=== PATIENT | female | born 1990 | race Caucasian/White ===

== ENCOUNTER 2019-10-04 17:16 | Inpatient (IN) | payer MEDICAID ==
[~2019-10-04] VITALS: Ht 154.9 cm; Wt 61.9 kg
[2019-10-04 17:19] VITALS: Ht 154.9 cm; Wt 61.9 kg
--- NOTE | 2019-10-04 18:00 | NUR ---
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
--- NOTE | 2019-10-04 18:17 | NUR ---
LAB AT BEDSIDE
--- NOTE | 2019-10-04 18:27 | NUR ---
EKG IN PROGRESS
--- NOTE | 2019-10-04 18:40 | NUR ---
PORTABLE US AT BEDSIDE
--- NOTE | 2019-10-04 18:40 | NUR ---
MD WILLS MADE AWARE OF PT TEMP
[2019-10-04 18:41] LABS: UA SPECIFIC GRAVITY >=1.030 (1.005-1.035); microscopic required? YES; urine erythrocyte 3+ (NEGATIVE)
[2019-10-04 18:41] LABS: CALCIUM 8.1 mg/dL (8.5-10.1); CARBON DIOXIDE 25.9 mmol/L (21-32); CHLORIDE SERUM 97 mmol/L (98-107); CREATININE SERUM 0.5 mg/dL (0.6-1.0); GFR1 > 60 mL/min; GLUCOSE SERUM 87 mg/dL (74-106); POTASSIUM SERUM 3.5 mmol/L (3.5-5.1); SODIUM SERUM 132 mmol/L (136-145)
[2019-10-04 18:42] LABS: PLATELET COUNT 207 x10^3mcL (130-400); RED CELL DISTRIBUTION WIDTH 14.1 % (11.5-14.5)
--- NOTE | 2019-10-04 18:44 | NUR ---
PT MEDICATED PER MD ORDER SEE EMAR, PT MADE AWARE NOT TO USE A BLANKET AT THIS TIME.
[2019-10-04 18:45] LABS: BASOPHIL % 0 % (0-2)
[2019-10-04 18:46] LABS: ALKALINE PHOSPHATASE 450 U/L (46-116); ALT/SGPT 741 U/L (14-59); AST/SGOT 588 U/L (15-37); BILIRUBIN TOTAL 4.47 mg/dL (0.20-1.00); LIPASE 199 IU/L (73-393)
[2019-10-04 18:48] LABS: ALBUMIN 3.1 g/dL (3.4-5.0)
--- NOTE | 2019-10-04 19:11 | NUR ---
REPORT GIVEN TO WESTON GALLARDO TO RESUME CARE AT THIS TIME
--- NOTE | 2019-10-04 20:34 | NUR ---
INITIATED ZOSYN @100ML/HR. PLEASE SEE EMAR.
--- NOTE | 2019-10-04 20:44 | NUR ---
GAVE BRANDEE FROM [facility] CLINICAL SUMMARY FOR POSS ADMISSION.
--- NOTE | 2019-10-04 22:13 | NUR ---
REPORT GIVEN TO PAULINA ESCOBEDO TO ASSUME CARE OF THE PT.
[2019-10-04 22:35] VITALS: BP 96/52
--- NOTE | 2019-10-04 22:38 | NUR ---
RECEIVED PT FROM ED VIA LUIS. ORIENTED PT TO ROOM AND SURROUNDINGS. IV NOTED TO RIGHT WRIST PATENT AND INTACT. INSTRUCTED PT ON THE USE OF CALL LIGHT FOR ASSISTANCE. ENDORSED PT TO PRIMARY NURSE FANNY
--- NOTE | 2019-10-04 23:45 | NUR ---
RECEIVED FROM ED. KEPT COMFORTABLE IN BED. A/O X4, ABLE TO VERBALIZE NEEDS. ADMITTED WITH THE COMPLAINTS OF ABD. PAIN. NO COMPLAINTS NOTED AT THIS TIME. DENIES HEADACHE/DIZZINESS. ABD. SOFT, NON DISTENDED, BS ACTIVE, NO N/V NOTED. RESP. EVEN AND UNLABORED. LUNG SOUNDS CLEAR BILAT. ON ROOM AIR, NO ACUTE DISTRESS NOTED. STARTED ON IVF, NS AT 100ML/HR, INTACT AND INFUSING VIA RT WRIST. NPO EXCEPT MEDS. AFEBRILE AND VITAL SIGNS STABLE. CALL LIGHT WITHIN REACH. WILL CONTINUE TO MONITOR.
--- NOTE | 2019-10-05 01:20 | NUR ---
TO NUCLEAR MED .
--- NOTE | 2019-10-05 03:55 | NUR ---
FROM NUCLEAR MED, KEPT COMFORTABLE IN BED, COMPLAINING OF ABD. PAIN, 5/10, MEDICATED WITH TORADOL IV ORDERED. WILL CONTINUE TO MONITOR.
[2019-10-05 05:15] VITALS: BP 89/55
--- NOTE | 2019-10-05 05:19 | NUR ---
EYES CLOSED, APPEARS ASLEEP, EASILY AROUSABLE. RESP. EVEN AND UNLABORED. ON ROOM AIR, NO DISTRESS NOTED. WILL CONTINUE TO MONITOR.
--- NOTE | 2019-10-05 06:24 | NUR ---
NO COMPLAINTS NOTED AT THIS TIME. AFEBRILE AND VITAL SIGNS STABLE. RESP. EVEN AND UNLABORED. ON ROOM AIR, NO ACUTE DISTRESS NOTED. DUE MEDS GIVEN ORDERED, ROWDY. WELL. NPO EXCEPT MEDS MAINTAINED. IVF INTACT AND INFUSING WELL, SITE CLEAR. KEPT COMFORTABLE.VOIDING FREELY. NO BM NOTED. WILL CONTINUE TO MONITOR.
[2019-10-05 07:03] LABS: BASOPHIL % 0.1 % (0-2); PLATELET COUNT 172 x10^3mcL (130-400); RED CELL DISTRIBUTION WIDTH 13.9 % (11.5-14.5)
--- NOTE | 2019-10-05 07:05 | NUR ---
RECEIVED PT FROM NIGHT NURSE. PT IS LAYING DOWN IN BED WITH HOB UP RESTING. PT LOOKS TO BE IN NO ACUTE DISTRESS AT THIS TIME AND DENIES ANY PAIN AND STATES THAT SHE FEELS TIRED AT THIS TIME. RESPRIATIONS EVEN AND ULABORED ON ROOM AIR. IV SITE PATENT WITH NO SIGNS OF ERYTHEMA OR SWELLING WITH IV FLUIDS INFUSING. CALL LIGHT WITHIN REACH. WILL CONTINUE TO MONITOR.
[2019-10-05 07:33] VITALS: BP 87/57
[2019-10-05 07:36] LABS: CALCIUM 7.7 mg/dL (8.5-10.1); CARBON DIOXIDE 22.6 mmol/L (21-32); CHLORIDE SERUM 104 mmol/L (98-107); CREATININE SERUM 0.6 mg/dL (0.6-1.0); GFR1 > 60 mL/min; GLUCOSE SERUM 84 mg/dL (74-106); MAGNESIUM 2.1 mg/dL (1.8-2.4); PHOSPHOROUS 2.2 mg/dL (2.5-4.9); POTASSIUM SERUM 3.2 mmol/L (3.5-5.1); SODIUM SERUM 137 mmol/L (136-145)
[2019-10-05 08:29] LABS: BILIRUBIN DIRECT 3.6 mg/dL (0.0-0.2); BILIRUBIN TOTAL 5.24 mg/dL (0.20-1.00)
--- NOTE | 2019-10-05 11:17 | NUR ---
PT TAKEN DOWN FOR MRI, PT IS H/L AND LOOKS TO BE IN NO ACUTE DISTRESS AT THIS TIME. WILL CONTINUE TO MONITOR.
[2019-10-05 13:26] LABS: BILIRUBIN DIRECT 3.31 mg/dL (0.0-0.2); BILIRUBIN TOTAL 5.1 mg/dL (0.20-1.00); TOTAL PROTEIN, SERUM 6.3 g/dL (6.4-8.2)
[2019-10-05 13:27] LABS: ALBUMIN 2.7 g/dL (3.4-5.0)
--- NOTE | 2019-10-05 14:02 | NUR ---
PT IS LAYING DONW IN BED WITH HOB UP RESTING. PT LOOKS TO BE IN NO ACUTE DISTRESS AT THIS TIME AND STATES HER PAIN IS TOLERABLE. PT REQUESTING TO SHOWER, DR. HA DOES NOT RECOMMEND PT TO SHOWER AT THIS TIME BECAUSE OF LOW BLOOD PRESSURE. PROVIDED PT WITH WIPES AND A NEW GOWN. FAMILY MEMBER AT BEDSIDE. WILL CONTINUE TO MONITOR.
--- NOTE | 2019-10-05 16:20 | NUR ---
PT BLOOD PRESSURE LOW AND IS 89/54 WITH MAP OF 64. NOTIFIED DR. HA, AWAITING ORDERS.
[2019-10-05 16:37] VITALS: BP 89/54
--- NOTE | 2019-10-05 17:40 | NUR ---
POST BOLUS BLOOD PRESSURE IS 91/53.
[2019-10-05 17:50] VITALS: BP 91/53
--- NOTE | 2019-10-05 17:50 | NUR ---
PT TRANSFERED TO TELE. TELE MONITOR 10 APPLIED TO PT AND SHOWING INVERTED T WAVE. PT WALKING AROUND UNIT AT THIS TIME. WILL CONTINUE TO MONITOR.
--- NOTE | 2019-10-05 18:41 | NUR ---
PT IS SITTING AT THE EDGE OF THE BED. PT LOOKS TO BE IN NO ACUTE DISTRESS AT THIS TIME AND DENIES ANY PAIN. PT STATES THAT SHE IS BURPING AND PASSING GAS OFTEN. PT STATES THAT SINCE SHE HAS WALKED AROUND, SHE FEELS BETTER. RESPIRATIONS EVEN AND UNLABORED ON ROOM AIR. IV SITE PATENT WITH NO SIGNS OF ERYTHEMA OR SWELLING WITH IV FLUIDS INFUSING. CALL LIGHT WITHIN REACH. DEENA ENDORSE TO ONCOMING SHIFT.
--- NOTE | 2019-10-05 19:20 | NUR ---
RECEIVED PT FROM PREVIOUS SHIFT NURSE. PT AOX4, DENIES ALMODOVAR/DIZZINESS. TELE #10, READING SR WITH DEPRESSED T WAVE. DENIES CP/PRESSURE. DENIES SOB/DIFFICULTY BREATHING, ON RA. IV TO R. HAND, INTACT AND PATENT. BED IN LOWEST POSITION. CALL LIGHT WITHIN REACH. WILL CONTINUE TO MONITOR.
--- NOTE | 2019-10-05 20:03 | NUR ---
RECEIVED A CALL FROM [facility], PT RHYTHM CONVERTED TO A 'COMPLETE HEART BLOCK'. PT ASYMPTOMATIC. DENIES CP/PRESSURE. DR. SOTELO NOTIFIED. ORDERED STAT EKG.
[2019-10-05 20:53] VITALS: BP 90/53
--- NOTE | 2019-10-05 20:59 | NUR ---
PT HAD SECOND RUN OF COMPLETE HEART BLOCK. PT ASYMPTOMATIC. DENIES CP/PRESSURE. DR. SOTELO NOTIFIED.
--- NOTE | 2019-10-06 00:25 | NUR ---
PT HAD 2 MORE EPISODES OF COMPLETE HEART BLOCK. DENIES CP/PRESSURE. PT ASYMPTOMATIC. VITALS FOLLOW: 98/59 MAP 74, HR 78, 02 98% ON RA. DR. SCHRADER NOTIFIED.
--- NOTE | 2019-10-06 03:00 | NUR ---
PT RESTING IN BED. RR EVEN AND UNLABORED. IN NO ACUTE DISTRESS. CALL LIGHT WITHIN REACH. BED IN LOWEST POSITION. WILL CONTINUE TO MONITOR.
[2019-10-06 05:23] VITALS: BP 102/68
--- NOTE | 2019-10-06 05:24 | NUR ---
PT HAD ANOTHER EPISODE OF SECOND DEGREE MOBITZ. PT DENIES CP/PRESSURE. DIZZINESS. PT ASYSMPTOMATIC AT THIS TIME.
[2019-10-06 06:05] LABS: AMPHETAMINE QUAL UR POSITIVE (See below)
[2019-10-06 06:55] LABS: MAGNESIUM 1.8 mg/dL (1.8-2.4); PHOSPHOROUS 1.9 mg/dL (2.5-4.9)
[2019-10-06 06:56] LABS: BASOPHIL % 0.3 % (0-2); RED CELL DISTRIBUTION WIDTH 14.4 % (11.5-14.5)
[2019-10-06 07:26] VITALS: BP 104/70
[2019-10-06 07:35] LABS: ALBUMIN 2.3 g/dL (3.4-5.0); ALKALINE PHOSPHATASE 296 U/L (46-116); BILIRUBIN TOTAL 5.74 mg/dL (0.20-1.00); CALCIUM 7.2 mg/dL (8.5-10.1); CARBON DIOXIDE 21.9 mmol/L (21-32); CHLORIDE SERUM 108 mmol/L (98-107); CREATININE SERUM 0.6 mg/dL (0.6-1.0); GFR1 > 60 mL/min; GLUCOSE SERUM 90 mg/dL (74-106); POTASSIUM SERUM 3.3 mmol/L (3.5-5.1); SODIUM SERUM 139 mmol/L (136-145); TOTAL PROTEIN, SERUM 5.3 g/dL (6.4-8.2)
[2019-10-06 07:36] LABS: AST/SGOT 1279 U/L (15-37)
[2019-10-06 07:37] LABS: ALT/SGPT 1299 U/L (14-59)
[2019-10-06 08:05] LABS: PLATELET COUNT 90 x10^3mcL (130-400)
--- NOTE | 2019-10-06 08:33 | NUR ---
AT 0710 - RECEIVED PATIENT FROM NIGHT NURSE. SLEEPING. RESPIRATIONS REGULAR. MONITOR SHOWING SINUS RHYTHM; RATE 70. NO ECTOPIES NOTED. IV INFUSING D5NS AT 125 ML/HR. AT 0820 - PATIENT AWAKE, ALERT AND ORIENTED. REPORTS ABDOMINAL PAIN UNDER CONTROL AT THIS TIME. AWARE OF NEED TO BE NPO FOR POSSIBLE PROCEDURE. GIVEN K-PHOS PER EMAR FOR PHOS LEVEL OF 1.9.
--- NOTE | 2019-10-06 09:10 | NUR ---
RECEIVED ORDERS FOR CT GUIDED ASPIRATION OF PERICHOLECYSTIC FLUID. CONTACTED DR Derek AYERS INTERVENTIONALIST WHO REVIEW PRIOR IMAGES. SPOKE WITH PATIENT'S NURSE ERNESTO WHO SAYS THERE IS A CONSULT PENDING WITH DR Gaurav BRAVO FOR POSSIBLE ERCP. NOTIFIED DR AYERS R/T SAME. DR AYERS PAGING DR HA TO DISCUSS THE CASE WITH HER.
--- NOTE | 2019-10-06 10:00 | NUR ---
DR HA SPOKE WITH DR MARIE IN PERSON, INTERVENTIONAL RADIOLOGY ORDER ON HOLD AT THIS TIME, DIRECTOR EXTERNAL COMMUNICATIONS WILL DO ERCP INSTEAD.
--- NOTE | 2019-10-06 10:23 | NUR ---
AT 0855 - RECEIVED CALL FROM DR BRAVO. PATIENT IS FOR ERCP TODAY. RECEIVED INSTRUCTION TO PROVIDE PATIENT WITH ERCP INFORMATION AND DR WILL SEE PATIENT SHORTLY. AT 0935 - SEEN BY DR BRAVO. AT 0945 - SEEN BY DR CHERY DURING MORNING ROUNDS WITH THE MEDICAL TEAM DOCTORS. SPOKE WITH PATIENT ABOUT PLAN OF TREATMENT. RECEIVING CALLS FROM RADIOLOGY ABOUT PLAN FOR PATIENT TO HAVE ASPIRATION OF GALL BLADDER. SPOKE WITH DR CHERY AND DR SHAH. THEY WILL CO-ORDINATE WITH RADIOLOGIST AND LABORATORY VETERINARIAN TO SEE WHICH PROCEDURE WILL BE DONE. AT 1000 - PER DR HA, PATIENT WILL HAVE ERCP ONLY AT THIS TIME. PATIENT HAS SIGNED CONSENT FOR ERCP AND MODERATE SEDATION/MAC. CHLORHEXEDINE BODY WIPES SKIN PREP DONE. AT 1010 - REPORT GIVEN TO SURGERY NURSE. AT 1030 - PATIENT WAS IN THE PROCESS OF BEING TAKEN TO SURGERY FOR ERCP BUT PROCEDURE POSTPONED UNTIL 1200 NOON, SO PATIENT RETURNED TO BED. IV FLAGYL IN PROGRESS AT THIS TIME.
--- NOTE | 2019-10-06 12:40 | NUR ---
AT 1155 - PATIENT TAKEN TO OR FOR ERCP. SCHEDULED DOSE OF IV ZOSYN SENT WITH PATIENT. OR NURSE WILL ADMINISTER. PO KCL HELD AT THIS TIME. WILL ADMINISTER UPON PATIENT'S RETURN TO FLOOR.
[2019-10-06 14:22] VITALS: BP 99/60
--- NOTE | 2019-10-06 15:09 | NUR ---
AT 1430 - PATIENT BACK IN ROOM FOLLOWING ERCP , SPHINCTEROTOMY, BALLOON SWEEP AND STENT PLACEMENT UNDER GENERAL ANAESTHESIA. PATIENT IS AWAKE, ALERT AND ORIENTED X 4. IV INFUSION OF D5 NS RESUMED AT 125 ML/HR. GIVEN 20 MEQ KCL PO PER EMAR FOR K+ LEVEL OF 3.3. NO C/O PAIN. AT 1445 - EATING LUNCH. REGULAR DIET FOOD. AT 1500 - CARE ENDORSED TO PAULINA GA.
--- NOTE | 2019-10-06 15:51 | NUR ---
RECEIVED REPORT FROM THE RN AND ASSUMED CARE OF THE PATIENT.SHE HAS DIMINISHED BREATH SOUNDS AND WITH SOME MILD RALES HEARD. SHE HAS SKIN THAT IS JAUNDICED BUT ONLY MILDLY AND HAS A DISTENDED AND MODERATELY FIRM ABDOMEN. AT THIS TIME SHE DENIES PAIN CONSTANTINO HS BEEN ON REGULAR DIET ORDERED AND NO NAUSEA NOTED. PATIENT HAS A ERCP AND A STENT AND SPINCEROTOMY WITH SWEEP BY DR BRAVO AND HAS BEEN SEEN BY DR SANTILLAN WHO DOES NT WANT TO DO SURGERY AT THIS TIME. SHE HAS NOTED LABS OF THE AST AT 1279, AND ALT AT 1299, AND THE ALK PHOS AT 296. SHE HAS BEE WITH POTASSIUM OF 3.3 AND PO WAS GIVEN THIS AM AND PHOS AT 1.9 AND PHOS WAS ALSO REPLACED. SHE HAS BEEN ON FLAGYL AND ZOSYN AND NO ADVERSE REACTION NTOED. PATIENT IS AMBULATORY AND HAS BEEN NOTED TO HAVE HX OF HEROIN AND METHAMPHETAMINE USE AND HAS HEPATITIS C AND HAS USED IV DRUGS, IS A SMOKER AND SUSPECT SHE DRINKS WELL IT NOT NOW POSSIBLY IN THE PAST. SHE IS WITH SINUS RHYTHM ON THE MONITOR AND WAS REPORTED TO HAVE A 2ND DEGREE BLOCK ON THE CHO AND A BOUT OF FIRST DEGREE BLOOD LAST NIGHT SINCE RESOLVED, MOBITZ TYPE. SHE HAS ACTIVE BOWEL SOUNDS AND LYING IN BED AND TALKING ON THE CELL PHONE AT THIS TIME PULSES PALPABLE AND SKIN IS WARM AND DRY. LAST VITALS AREA T 97.9, 64, 16, 99/60, 100% ON ROOM AIR AT 14:30. DOES NOT APPEAR IN ANY ACUTE DISTRESS AT THIS TIME.
[2019-10-06 17:16] VITALS: BP 92/55
--- NOTE | 2019-10-06 17:18 | NUR ---
PATIENT SEEN BY DR JORGE AND PLAN OF CARE DISCUSSED. PER SURGERY HE BELIEVES SHE CAN GO HOME TOMORROW OR ON WEDNESDAY. SHE HAS NOT HAD ANY REGLA REMOVED AND WOUND SITE OPEN TO AIR. SHE HAS TO FOLLOWED UP WITH PRIMARY AND WITH THE SURGEON ON WEDNESDAY IN [place] OFFICE. SHE WAS SITTING UP IN CHAIR AND TOLERATED WELL. ADVISDED THAT THERE IS NO MORE ANTIBIOTIC INDICATED FOR HOME SOME MOTRIN OR PAIN MEDICATION ONLY. SHE IS TO AVOID BEEF FOR NOW AND TO WALK AND TAKE IT SLOWLY. SHE HAS BEEN TAKING BP MEDICATIONS AT HOME AND SHE TAKES ZOCAR AND ADVISED THE CHARGE NURSE SHE NEEDS TO CONTINUE SHE WAS CALLING THE ROTOPRINTER FOR UPDATES. BP IS ABOVE THE 160'S SYSTOLIC. AT THIS TIME. SHE DENIES ANY HEADACHE OR PRESSURE. HX OF CVA, HTN NOTED.
--- NOTE | 2019-10-06 17:26 | NUR ---
PAIN MEDICATION WAS EFFECTIVE AND NOW PATIENT WANTS ICE CREAM. WILL REQEST. PATIENT CONTINUED ON IV ANTIBIOTICS ORDERED.
--- NOTE | 2019-10-06 19:52 | NUR ---
PATIENT REQUESTING SHOWER AND NO ORDERS. ENDORSED TO RN COMING IN. PATIENT ON TELE AND VERY ACTIVE.
--- NOTE | 2019-10-06 20:00 | NUR ---
PT A/A/O X4. DENIES DIZZINESS AND HEADACHE. BREATH SOUNDS CLEAR. BREATHING EVEN AND UNLABORED ON ROOM AIR. DENIES CHEST PAIN AND PRESSURE. BOWEL SOUNDS ACTIVE. C/O MILD NAUSEA AND DENIES NEED FOR NAUSEA MEDICATION. DENIES ABD PAIN THUS FAR. IV INTACT ON THE RIGHT FOREARM INFUSING WITH D5 NS AT 125 ML/HR. MADE PT COMFORTABLE. PLACED CALL LIGHT WITH IN REACH. WILL CONTINUE TO MONITOR.
--- NOTE | 2019-10-07 | NUR ---
PT C/O ABDOMINAL PAIN AND FEELING FULL. GAVE PT TORADOL IVP. PT TOLERATED IT WELL. WILL CONTINUE TO MONITOR.
--- NOTE | 2019-10-07 02:55 | NUR ---
PT C/O NAUSEA AND STOMACH "FEELING SOUR". GAVE PT ZOFRAN IVP. PT TOLERATED IT WELL. WILL CONTINUE TO MONITOR.
[2019-10-07 04:16] VITALS: BP 97/70
--- NOTE | 2019-10-07 04:31 | NUR ---
PT C/O SEVERE ABDOMINAL PAIN. GAVE PT MORPHINE IVP. PT TOLERATED IT WELL. DENIES FEELING NAUSEATED THUS FAR. MADE PT COMFORTABLE. WILL CONTINUE TO MONITOR.
--- NOTE | 2019-10-07 06:11 | NUR ---
PT WANTS LAB DRAW AFTER BREAKFAST. PT WITH NO C/O NAUSEA AND ABDOMINAL PAIN THUS FAR. IV INTACT AND INFUSING ORDERED. MADE PT COMFORTABLE. WILL ENDORSE TO THE AM NURSE ACCORDINGLY.
[2019-10-07 08:22] VITALS: BP 100/63
--- NOTE | 2019-10-07 08:23 | NUR ---
AT 0715 - RECEIVED PATIENT FROM NIGHT NURSE. SLEEPING. RESPIRATIONS REGULAR. MONITOR SHOWING SINUS RHYTHM; RATE 70. IV INFUSING D5NS AT 125 ML/HR. AT 0748 - MONITOR SHOWED BRIEF PERIOD OF SECOND DEGREE HEART BLOCK, REVERTED BACK TO SINUS RHYTHM WITHIN SEVERAL SECONDS. BP 129/57 AT 0810 - PATIENT AMBULATING IN HALLWAY. PATIENT HAD EPISODE OF 4 SECOND DURATION OF 6 P WAVES WITH NO QRS COMPLEXES ON THE MONITOR STRIP. PATIENT REPORTED SHORT EPISODE OF DIZZINESS UPON GETTING UP. NO CHEST PAIN. AT 0815 - SPOKE WITH DR WEN. NOTIFIED OF PATIENT'S CARDIAC RHYTHM. HE WILL ORDER EKG AND DOCTORS WILL SEE PATIENT SHORTLY. PATIENT AWARE OF PLAN. SHE ALSO REPORTS DARK URINE. NOTED SLIGHT JAUNDICE OF SKIN. AWAITING LIVER ENZYMES RESULTS.
[2019-10-07 08:29] LABS: ALKALINE PHOSPHATASE 278 U/L (46-116); ALT/SGPT 815 U/L (14-59); AST/SGOT 439 U/L (15-37); CARBON DIOXIDE 24.8 mmol/L (21-32); CHLORIDE SERUM 109 mmol/L (98-107); CREATININE SERUM 0.8 mg/dL (0.6-1.0); GFR1 > 60 mL/min; GLUCOSE SERUM 164 mg/dL (74-106); POTASSIUM SERUM 3.1 mmol/L (3.5-5.1); SODIUM SERUM 140 mmol/L (136-145)
[2019-10-07 08:30] LABS: TOTAL PROTEIN, SERUM 4.9 g/dL (6.4-8.2)
[2019-10-07 08:39] LABS: BASOPHIL % 0 % (0-2); PLATELET COUNT 118 x10^3mcL (130-400); RED CELL DISTRIBUTION WIDTH 14.6 % (11.5-14.5)
[2019-10-07 08:59] LABS: MAGNESIUM 1.6 mg/dL (1.8-2.4); PHOSPHOROUS 1.7 mg/dL (2.5-4.9)
--- NOTE | 2019-10-07 10:02 | NUR ---
RESTING QUIETLY. MONITOR SHOWING SINUS BRADYCARDIA; RATE 53. CONTINUING TO MONITOR.
[2019-10-07 12:03] VITALS: BP 115/64
--- NOTE | 2019-10-07 14:09 | NUR ---
AT 1115 - PATIENT WALKED TO NURSES STATION, CRYING. C/O DISTENDED ABDOMEN GETTING WORSE. SAYS: "MY STOMACH IS NOT DIGESTING THE FOOD". C/O PAIN IN RUQ. CHARGE NURSE SPEAKING WITH TRAIN DRIVER FELDER REGARDING PATIENT'S COMPLAINTS. PATIENT MEDICATED WITH MORPHINE PER EMAR. ALSO GIVEN 40 MEQ KCL FOR K+ LEVEL OF 3.1 2 GRAM MG RIDER COMMENCED AT 25 ML/HR. TO INFUSE OVER 2 HRS. AT 1315 - PATIENT WAS ABLE TO TOLERATE ONLY SMALL AMOUNT OF FOOD FOR LUNCH. NOW MEDICATED WITH MILK-OF-MAG AND SIMETHACONE PER EMAR FOR TREATMENT OF PATIENT'S SYMPTOMS. AT 1400 - RESTING QUIETLY WITH EYES CLOSED.
--- NOTE | 2019-10-07 15:48 | NUR ---
VOMITED BROWN LIQUID. PATIENT DECLINED ANTI-EMETIC. SAYS SHE WANTS TO THROW-UP AND GET RID OF WAHT IS UPSETTING HER STOMACH. GIVEN A SODA. PATIENT FELT A LITTLE BETTER AFTER VOMITING. HAS BEEN SEEN BY DR NIEVES (CARDIOLOGY). NO NEW ORDERS JUST RECOMMENDATIONS IN HIS REPORT.
--- NOTE | 2019-10-07 16:11 | NUR ---
PATIENT HAD ANOTHER EPISODE OF COMPLETE HEART BLOCK LASTING 5 SEC ON MONITOR. REVERTED BACK TO SINUS RHYHTM. PATIENT SAID THAT SHE SAT UP IN BED AT THAT TIME. NO OTHER SYMPTOM. CONTINUING TO MONITOR.
[2019-10-07 16:23] VITALS: BP 123/78
--- NOTE | 2019-10-07 17:34 | NUR ---
NO FURTHER VOMITING OR C/O NAUSEA BUT PATIENT CONTINUES TO C/O RUQ ABDOMINAL PAIN. NOW MEDICATED WITH MORPHINE PER EMAR. PATIENT REFUSED FOOD FOR DINNER.
--- NOTE | 2019-10-07 18:57 | NUR ---
AFTER ABDOMINAL PAIN SUBSIDED, PATIENT AMBULATED IN HALLWAY. NO FURTHER VOMITING. VSS. AFEBRILE. NOW RESTING IN BED. WILL ENDORSE CARE TO NIGHT NURSE.
[2019-10-07 20:22] VITALS: BP 97/73
--- NOTE | 2019-10-08 00:55 | NUR ---
PT. C/O ABD. DISCOMFORT/PAIN, 4-03/24. PRN TORADOL IVP GIVEN ORDERED. WILL MONITOR.
[2019-10-08 04:59] VITALS: BP 98/57
--- NOTE | 2019-10-08 05:11 | NUR ---
PT. SLEPT MOSTLY THROUGHOUT THE NIGHT. C/O FEELING BLOATED AND CONSTIPATED. STATED THAT HER STOMACH IS TOO DISTENDED. DR. CHERY MADE AWARE. RECEIVED ORDER FOR FLOWER KAUFFMAN.
--- NOTE | 2019-10-08 08:17 | NUR ---
AT 0730 - RECEIVED PATIENT FROM NIGHT NURSE. AWAKE, ALERT AND ORIENTED X 4. NO C/O . BUT PATIENT REPORTS A LOT OF ABDOMINAL DISCOMFORT. RELUCTANT TO EAT. IV INFUSING D5NS AT 125 ML/HR. AT 0750 - SPOKE WITH RACHEL FELDER REGARDING PATIENT CONDITION AND COMPLAINTS OF PERSISTANT ABDOMINAL DISCOMFORT. RECEIVED ORDERS FOR STAT AM LABS. PATIENT SEEN BY RACHEL FELDER.
[2019-10-08 08:37] VITALS: BP 100/61
[2019-10-08 08:55] LABS: CALCIUM 6.8 mg/dL (8.5-10.1); CARBON DIOXIDE 27.4 mmol/L (21-32); CHLORIDE SERUM 108 mmol/L (98-107); CREATININE SERUM 0.8 mg/dL (0.6-1.0); GFR1 > 60 mL/min; GLUCOSE SERUM 139 mg/dL (74-106); POTASSIUM SERUM 3.3 mmol/L (3.5-5.1); SODIUM SERUM 139 mmol/L (136-145)
[2019-10-08 09:07] LABS: PLATELET COUNT 121 x10^3mcL (130-400); RED CELL DISTRIBUTION WIDTH 15.1 % (11.5-14.5)
--- NOTE | 2019-10-08 09:37 | NUR ---
DURING AMBULATION PATIENT HAD EPISODE OF COMPLETE HEART BLOCK OF 4-5 SEC DURATION PER REPAIRER WELDING SYSTEMS AND EQUIPMENT. PATIENT REPORTS FEELINGS OF DIZZINESS DURING THOSE EPISODES. HAS BEEN VOIDING DARK TEA-COLORED URINE. PATIENT NOW REPORTS THAT URINE IS BECOMING REPLANTER. ALSO REPORTED 1 SMALL BM.
[2019-10-08 11:48] LABS: BAND NEUTROPHIL 0 % (0-10); BASOPHIL 0 % (0-2); MONOCYTE 4 % (0-7); SEGMENTED NEUTROPHILS 25 % (37-75)
[2019-10-08 11:49] LABS: rbc morphology (normal/abnorm) ABNORMAL (NORMAL)
[2019-10-08 11:50] LABS: PLATELET MORPHOLOGY PLATELETS NORMAL
[2019-10-08 12:10] VITALS: BP 102/67; BP 98/60
--- NOTE | 2019-10-08 14:29 | NUR ---
AT 1230 - RADIOLOGY AT BEDSIDE, TAKING KUB. PATIENT HAS EATEN SOME LUNCH BUT C/O ABDOMINAL DISTENSION AND PAIN. AT 1246 - 40 MEQ K-RIDER WITH LIDOCAINE COMMENCED FOR K+ LEVEL OF 3.3. TO INFUSE OVER 4 HRS. MEDICATED WITH MORPHINE PER EMAR. AT 1410 - PATIENT RESTING QUIETLY.
[2019-10-08 16:46] VITALS: BP 101/72
--- NOTE | 2019-10-08 18:55 | NUR ---
PATIENT SLEPT FOR MOST OF THE AFTERNOON. VSS AND WNL. AFEBRILE. HAS HAD SEVERAL EPISODES OF HEART BLOCK DURATION RANGING FROM 4-6 SECONDS, USUALLY DURING ACTIVITY, AMBULATION. STIL C/O ABDOMINAL DISTENTION AND PAIN. DID NOT WANT TO EAT DINNER. K-RIDER COMPLETED. MG RIDER STIL IN PROGRESS. WILL ENDORSE CARE TO NIGHT NURSE.
--- NOTE | 2019-10-08 19:45 | NUR ---
PT. AWAKE AND ALERT, ORIENTED X4. DENIES HEADACHE OR DIZZINESS. BREATH SOUNDS CLEAR THROUGHOUT LUNG OCONNOR, RESP. EVEN, UNLABORED. NO SOB NOTED. PT. ON RA. ABD. SOFT AND ROUND, BOWEL SOUNDS ACTIVE. DENES NAUSEA.STILL C/O MILD ABD. DISCOMFORT. RECEIVED PRN IVP MORPHINE FROM DAY NURSE. PT. WAS ALSO LINDA TO HAVE ONE MORE BM JUST BEFORE HAND OFF REPORT. NO EDEMA TO EXTREMITIES. PEDAL PULSE STRONG [place]. IV SITE INTACT. CALL LIGHT WITHIN REACH.
[2019-10-08 21:20] VITALS: BP 108/78
--- NOTE | 2019-10-09 00:27 | NUR ---
PT. NOTED TO HAVE 6 SECOND PAUSE WHILE USING BATHROOM. PT. BACK TO BED AND DENIES DIZZINESS OR FAINT FEELING. ALSO DENIES CHEST DISCOMFORT. WILL CONTINUE TO MONITOR.
[2019-10-09 05:21] VITALS: BP 101/65
--- NOTE | 2019-10-09 06:09 | NUR ---
NO C/O NAUSEA THROUGHOUT NIGHT. PT. MOSTLY SLEPT. NO C/O PAIN. PT. SB/SR THIS AM. NO ECTOPIES NOTED AT THIS TIME. IVF INFUSING WELL, SITE REMAINS INTACT. CALL LIGHT WITHIN REACH. WILL ENDORSE PT CARE TO INCOMING NURSE.
[2019-10-09 06:24] LABS: BASOPHIL % 0.2 % (0-2); PLATELET COUNT 159 x10^3mcL (130-400)
[2019-10-09 06:25] LABS: CALCIUM 7.2 mg/dL (8.5-10.1); CARBON DIOXIDE 27.9 mmol/L (21-32); CHLORIDE SERUM 107 mmol/L (98-107); CREATININE SERUM 0.8 mg/dL (0.6-1.0); GFR1 > 60 mL/min; GLUCOSE SERUM 85 mg/dL (74-106); MAGNESIUM 2.3 mg/dL (1.8-2.4); POTASSIUM SERUM 3.8 mmol/L (3.5-5.1); SODIUM SERUM 140 mmol/L (136-145)
[2019-10-09 06:42] LABS: RED CELL DISTRIBUTION WIDTH 14.9 % (11.5-14.5)
--- NOTE | 2019-10-09 07:30 | NUR ---
PT ENDORSE TO ME THIS MORNING. LAYING IN BED RESTING AA/O X4, BREATHING EVEN AND UNLABORED ON RA, NO ACUTE RESP DISTRESS OR SOB NOTED. TELE 10 SR WITH HR 68/ DENIES ANY CP OR PRESSURE. BOWEL SOUNDS ACTIVE IN ALL FOUR QUADS, PER PT LAST BM THIS AM, REG, STATING "I FEEL BETTER, IM READY TO GO HOME". VOIDS FREEELY. AMB. IV TO LFA INFUSING AT 125ML/HR, NO REDNESS OR SWELLING NOTED. CALL LIGHT IN REACH. BED IN LOW POSITION. WILL CONTINUE TO MONITOR.
[2019-10-09 09:44] VITALS: BP 108/73
[2019-10-09 10:07] LABS: BILIRUBIN DIRECT 1.66 mg/dL (0.0-0.2); BILIRUBIN TOTAL 2.1 mg/dL (0.20-1.00)
[2019-10-09 10:11] LABS: ALBUMIN 2.1 g/dL (3.4-5.0); TOTAL PROTEIN, SERUM 5.3 g/dL (6.4-8.2)
--- NOTE | 2019-10-09 13:25 | NUR ---
[employer]AL [employer] AFFA[employer] MANAGER TEJ WALKED PT TO DISCHARGE LOBBY. DENIES ANY ABD PAIN OR DISCOMFORT. DISCHARGED.
--- NOTE | 2019-10-09 13:25 | NUR ---
EXPLAINED DISCHARGE INSTRUCTIONS, FOLLOW UP APPT FOR PRIMARY DOC THAT WAS MADE FOR PT ON 10/23 AT 9AM AT [facility] AND FOLLOW UP APPT WITH DOC LAWRENCE, PT AGREED AND SIGNED ALL DOCUMENTS. PT DISCHARGED HOME.
== END 2019-10-09 13:25 | disposition home or self-care (01) | DRG 720 ==
LOC: ED 17:16 → DU 22:01 → MU 22:01 → DU 10-05 17:14
PROVIDERS: Emergency Medicine; Internal Medicine Gastroenterology; ADMIT General Practice
PROC: 0F798DZ Dilation of Common Bile Duct with Intraluminal Device, Via Natural or Artificial Opening Endoscopic (ICD-10-PCS; principal; 2019-10-06 11:00)
DX: A41.9 Sepsis, unspecified organism (principal); K80.00 Calculus of gallbladder with acute cholecystitis without obstruction; E83.39 Other disorders of phosphorus metabolism; E87.1 Hypo-osmolality and hyponatremia; E87.8 Other disorders of electrolyte and fluid balance, not elsewhere classified; I44.1 Atrioventricular block, second degree; E87.6 Hypokalemia; B18.2 Chronic viral hepatitis C; F15.10 Other stimulant abuse, uncomplicated; F11.10 Opioid abuse, uncomplicated; L29.8 Other pruritus; R74.0 Nonspecific elevation of levels of transaminase and lactic acid dehydrogenase [LDH]; Z68.24 Body mass index [BMI] 24.0-24.9, adult; Z87.891 Personal history of nicotine dependence
CPT/HCPCS: 43262; 74181; 78226; A9537; C1769; C2625; G0378; J1610; J1885; J2270; J2405; J2543; J2704; J3475; J3480; J3490; J7030; J7040; J7042; J7120; Q0092; Q9967